=== PATIENT | female | born 1975 | race Caucasian/White ===

== ENCOUNTER 2019-01-26 08:04 | Emergency (ER) | payer OTHER ==
[2019-01-26] MEDS: KETOROLAC TROMETHAMINE 60 MG/2 ML VIAL IM ONE (08:32)
[2019-01-26 08:44] LABS: MEAN CORPUSCULAR HEMOGLOBIN 26.8 pg (28.0-34.0)
[2019-01-26 08:58] LABS: eGFR (Non-African) > 60
[2019-01-26 09:02] LABS: BASOPHILS % 0 % (0-2); EOSINOPHILS % 0 % (0-7); MONOCYTES % 3 % (0-11); SEGMENTED NEUTROPHILS % 78 % (39-79)
--- NOTE | 2019-01-26 09:03 | ED Physician Documentation ---
General Adult - HISTORIAN Historian: patient - HPI Stated Complaint: Chest pain Chief Complaint: General Adult Onset: other (weeks ago) Further Comments: yes (43 year old female patient presents with complaint of right shoulder; right chest wall and right arm discomfort for the past few weeks. Patient was concerned she was having a heart attack. Denies SOB or nausea. Patient states she has been off her thyroid medication for years. Has not seen a doctor in 2-3 years. LMP 01/19/19) - ROS CONST: no problems EYES/ENT: none CVS/RESP: none GI/: none MS/SKIN/LYMPH: none NEURO/PSYCH: denies: headache, fainting, dizziness, tingling, numbness, difficulty walking, difficulty with speech, anxiety, depression, other - PAST HX Past History: other (hypothyroidism) Surgeries/Procedures: Allergies/Adverse Reactions: Allergies Allergy/AdvReac Type Severity Reaction Status Date / Time amoxicillin [Amoxicillin] Allergy Verified 01/26/19 08:53 Home Medications: Ambulatory Orders Medication Instructions Recorded NK 01/26/19 - SOCIAL HX Smoking History: non-smoker - FAMILY HX Family History: No - VITAL SIGNS Vital Signs: Vital Signs Temp Pulse Resp BP Pulse Ox 98.4 F 113 H 26 H 126/73 97 01/26/19 08:04 01/26/19 08:04 01/26/19 08:04 01/26/19 08:04 01/26/19 08:04 - REVIEWED ASSESSMENTS Nursing Assessment Reviewed: Yes Vitals Reviewed: Yes Progress - Progress Progress: WBC 17.5 - no shift. No source of infection evident at this time. Discussed at length with patient. Instructed to return to ER if symptoms become worse, developed fever, severe abdominal pain, chest pain or cough. Patient verbalized understanding. Patient does not currently have PCP. List of providers given to patient, explained importance of close follow up. Verbalized understanding. - EKG/XRAY/CT EKG: rhythm (SR, no acute changes) ED Results Lab/Radiology - Lab Results Lab Results: Lab Results 01/26/19 08:14 Sodium 134 mmol/L L mmol/L (137-145) Potassium 3.6 mmol/L mmol/L (3.5-5.1) Chloride 103 mmol/L mmol/L (98-107) Carbon Dioxide 23 mmol/L mmol/L (22-30) BUN 12 mg/dL mg/dL (7-17) Creatinine 0.67 mg/dL mg/dL (0.52-1.04) Estimated Creat Clear 276 Est GFR ( Amer) > 60 (60 - ) Est GFR (Non-Af Amer) > 60 (60 - ) Glucose 105 mg/dL mg/dL (74-106) Calcium 8.9 mg/dL mg/dL (8.4-10.2) Total Bilirubin 0.6 mg/dL mg/dL (0.2-1.3) AST 29 U/L U/L (15-46) ALT 22 U/L U/L (0-35) Alkaline Phosphatase 102 U/L U/L (38-126) Total Protein 7.4 g/dL g/dL (6.3-8.2) Albumin 3.9 g/dL g/dL (3.5-5.0) - Radiology Radiology Impressions: Examination: PA and lateral chest. History: Evaluate lung broussard. Cough congestion shortness of breath Comparison exam: None provided. Findings: PA and lateral views of the chest demonstrates a normal cardiac and mediastinal silhouette. No focal infiltrate. No blunting of the costophrenic margins. Osseous structures are appropriate for age. Impression: No acute pulmonary process. Electronically signed on Jan 26, 2019 10:16:27 AM CDT by: Jerel Camilo - Orders Orders: ED Orders Category Date Time Status CBC/PLATELET/DIFF Stat Lab 01/26/19 08:14 Received CMP Stat Lab 01/26/19 08:14 Completed THYROID PROFILE Stat Lab 01/26/19 Ordered Ketorolac Tromethamine [Toradol] Med 01/26/19 08:14 Discontinued 60 mg IM NOW ONE General Adult Physical Exam - PHYSICAL EXAM GENERAL APPEARANCE: [id number] N EENT: eye inspection normal, ROB RESPIRATORY: no resp distress, chest non-tender, breath sounds normal CVS: reg rate & rhythm, heart sounds normal, equal pulses, no murmur, no gallop, PMI nml, no JVD, no friction rub, 24 ABDOMEN: soft, no organomegaly, normal bowel sounds, no abdominal bruit, no d istension, other (morbid obesity) SKIN: normal color, warm/dry, NR, INT, PAL, DR EXTREMITIES: non-tender, normal range of motion, no evidence of injury, no edema, J, ASSISTANT HEALTH EDUCATOR NEURO: oriented X3, CN's nml as tested, motor nml, sensation nml, mood/affect nml Discharge Clincal Impression: Chest wall discomfort, Non compliance w medication regimen Leukocytosis, unspecified Qualifiers: Leukocytosis type: unspecified Qualified Code(s): D72.829 - Elevated white blood cell count, unspecified Referrals: Rebel Cerna MD [Primary Care Provider] - 2 Days Additional Instructions: Your thyroid test are a send out lab. Make an appointment to see a primary care doctor next week for follow up on your lab. You will need to have a CBC rechecked. If your symptoms become worse return to ER Condition: Stable Disposition: 01 HOME, SELF-CARE Decision to Admit: NO Decision Time: 09:07
[2019-01-26 10:30] VITALS: BP 108/75
[2019-01-26 11:36] LABS: APPEARANCE,URINE CLEAR (CLEAR); COLOR,URINE YELLOW (YELLOW); OCCULT BLOOD,URINE TRACE-LYSED (NEGATIVE); PH URINE 5.5 (5.0 - 8.0); UROBILINOGEN URINE 0.2 Eu (0.2-1.0)
--- NOTE | 2019-01-26 21:51 | Diagnostic Imaging Report ---
ANDRES FINCH ([employer]AD[employer]) - ER [facility] [id number] [address] Report Submission Date: Jan 26, 2019 10:16:27 AM CDT Patient Study Name: ARNOLD GARCIA Date: Jan 26, 2019 9:37:21 AM CDT Modality Type: DX Gender: F Description: CHEST 2VIEW : 77 Institution: [facility] Physician: ANDRES FINCH ([employer] LEADER) - ER Examination: PA and lateral chest. History: Evaluate lung broussard. Cough congestion shortness of breath Comparison exam: None provided. Findings: PA and lateral views of the chest demonstrates a normal cardiac and mediastinal silhouette. No focal infiltrate. No blunting of the costophrenic margins. Osseous structures are appropriate for age. Impression: No acute pulmonary process. Electronically signed on Jan 26, 2019 10:16:27 AM CDT by: Jerel DYE
== END 2019-01-26 10:30 | disposition home or self-care (01) ==
LOC: ED 08:04
DX: R07.89 Other chest pain (principal); D72.829 Elevated white blood cell count, unspecified; Z91.14 Patient's other noncompliance with medication regimen; E03.9 Hypothyroidism, unspecified
CPT/HCPCS: 36415; 71046; 80053; 81002; 83605; 84436; 84479; 85025; 87040; 93005; 96372; 99283; 99284; J1885; S1016